=== PATIENT | male | born 1945 | race Caucasian/White ===

== ENCOUNTER 2021-04-19 08:47 | Day surgery (SDC) | payer MEDICARE, OTHER ==
[~2021-04-19] VITALS: Ht 172.7 cm; Wt 82.2 kg
[~2021-04-19 08:47] MED LIST: AMLO5 PO; ASPI81EC PO; BUDE6HFA INH; METF500 PO; PRAV20 PO; TADA10TA PO; TELM80/12.5 PO
[2021-04-19] MEDS ORDERED: METO25ER PO (10:01)
[2021-04-19] MEDS ORDERED: PRED5 PO (10:02)
[2021-04-19] MEDS ORDERED: JARDIANCE10 MG PO (10:02)
[2021-04-19] MEDS ORDERED: SITA50T2 PO (10:03)
[2021-04-19] MEDS ORDERED: LOSA50 PO (10:03)
--- NOTE | 2021-04-19 10:08 | NUR ---
04/19/21 [id number] Sheila Millard CALL LIGHT WITHIN REACH
--- NOTE | 2021-04-19 11:22 | NUR ---
04/19/21 1122 Edy Jaeger 1MG OF EPI ADDED TO EACH OF THE FIRST THREE BAGS OF LR USED FOR JOINT IRRIGATION.
--- NOTE | 2021-04-19 13:11 | NUR ---
04/19/21 1311 LAVONNE COCHRAN SECOND BAG OF LR RUNNING IN PACU- REMAINING AT DC 650ML
== END 2021-04-19 13:43 | disposition home or self-care (01) ==
LOC: ORSCSDS 08:47
PROVIDERS: Orthopaedic Surgery
PROC: 0RNJ4ZZ Release Right Shoulder Joint, Percutaneous Endoscopic Approach (ICD-10-PCS; principal; 2021-04-19 10:15)
PROC: 0LM14ZZ Reattachment of Right Shoulder Tendon, Percutaneous Endoscopic Approach (ICD-10-PCS; principal; 2021-04-19 10:15)
PROC: 0LS34ZZ Reposition Right Upper Arm Tendon, Percutaneous Endoscopic Approach (ICD-10-PCS; principal; 2021-04-19 10:15)
DX: M75.121 Complete rotator cuff tear or rupture of right shoulder, not specified as traumatic (principal); M75.42 Impingement syndrome of left shoulder; M19.012 Primary osteoarthritis, left shoulder; M75.21 Bicipital tendinitis, right shoulder; I10 Essential (primary) hypertension; J44.9 Chronic obstructive pulmonary disease, unspecified; E11.9 Type 2 diabetes mellitus without complications; Z87.891 Personal history of nicotine dependence; Z79.84 Long term (current) use of oral hypoglycemic drugs; Z79.899 Other long term (current) drug therapy
CPT/HCPCS: 82947; C1713; J0171; J0690; J1100; J1720; J1885; J2250; J2405; J2704; J3010; J7120

== ENCOUNTER 2023-03-11 19:58 | Emergency (ER) | payer MEDICARE, OTHER ==
[~2023-03-11] VITALS: Ht 172.7 cm; Wt 83.9 kg
[~2023-03-11 19:58] MED LIST changes: +JARDIANCE10 MG PO; +LOSA50 PO; +METO25ER PO; +PRED5 PO; +SITA50T2 PO
[2023-03-11 20:16] LABS: BASOPHILS ABSOLUTE AUTO 0.07 K/mm3 (0.00-0.23); BASOPHILS PERCENT AUTO 1 % (0-2); EOSINOPHILS ABSOLUTE AUTO 0.36 K/mm3 (0.00-0.68); EOSINOPHILS PERCENT AUTO 5 % (0-6); Hematocrit 34.1 % (37.0-53.0); Hemoglobin 11.7 g/dL (13.5-17.5); IMMATURE GRAN ABSOLUTE AUTO 0.07 K/mm3 (0.00-0.10); IMMATURE GRAN PERCENT AUTO 1 % (0-1); LYMPHOCYTES ABSOLUTE AUTO 2.24 K/mm3 (0.84-5.20); LYMPHOCYTES PERCENT AUTO 29 % (21-46); MONOCYTES ABSOLUTE AUTO 0.81 K/mm3 (0.16-1.47); MONOCYTES PERCENT AUTO 11 % (4-13); Mean Corpuscular HGB 35.7 pg (26.0-34.0); Mean Corpuscular HGB Conc 34.3 g/dL (31.5-36.5); Mean Corpuscular Volume 104 fL (80-100); NEUTROPHILS ABSOLUTE AUTO 4.07 K/mm3 (1.96-9.15); NEUTROPHILS PERCENT AUTO 54 % (41-73); NRBC ABSOLUTE 0.06 K/mm3 (0.00-0.02); NRBC Auto 0.8 /100 WBC (0.0-0.2); Platelet Count 236 K/mm3 (150-400); RDW Coefficient Variation 15.6 % (11.7-14.2); RDW Standard Deviation 57.1 fL (35.1-46.3); Red Blood Cell Count 3.28 M/mm3 (4.30-5.90); White Blood Cell Count 7.62 K/mm3 (4.00-11.30)
[2023-03-11 20:30] LABS: International Normalized Ratio 0.98; Prothrombin Time Results 10.3 Sec (9.7-11.5)
[2023-03-11 20:37] LABS: Alanine Aminotransfer (ALT/SGP 39 U/L (12-78); Albumin, Blood 3.9 g/dL (3.4-5.0); Albumin/Globulin Ratio 1.1 (0.8-1.8); Alk Phos 68 U/L (50-136); Anion Gap 7 mmol/L (6-16); Aspartate Aminotrans (AST/SGOT 31 U/L (12-37); Bilirubin, Total 0.4 mg/dL (0.1-1.0); Blood Urea Nitrogen 20 mg/dL (8-24); Bun/Creatinine Ratio 21.5 (12.0-20.0); CO2, Blood 26 mmol/L (21-32); Calcium, Blood 9.2 mg/dL (8.5-10.1); Chloride, Blood 106 mmol/L (98-108); Creatinine, Blood 0.93 mg/dL (0.60-1.20); Globulin, Blood 3.7 g/dL (2.2-4.0); Glomerular Filtration Rate 85 (60-); Glucose, Blood 183 mg/dL (70-99); Potassium, Blood 4.2 mmol/L (3.5-5.5); Sodium, Blood 139 mmol/L (136-145); Total Protein, Blood 7.6 g/dL (6.4-8.2)
[2023-03-11 23:49] VITALS: BP 135/76
== END 2023-03-12 00:08 | disposition home or self-care (01) ==
LOC: ER 19:58
PROVIDERS: Emergency Medicine
DX: R55 Syncope and collapse (principal); I10 Essential (primary) hypertension; E11.9 Type 2 diabetes mellitus without complications; J44.9 Chronic obstructive pulmonary disease, unspecified; E78.5 Hyperlipidemia, unspecified; Z79.84 Long term (current) use of oral hypoglycemic drugs; Z79.899 Other long term (current) drug therapy; Z79.52 Long term (current) use of systemic steroids; Z79.51 Long term (current) use of inhaled steroids
CPT/HCPCS: 71045; 80053; 84484; 85025; 85610; 93005; 93010; 99285-25

== ENCOUNTER 2023-05-22 09:25 | Day surgery (SDC) | payer OTHER ==
[~2023-05-22] VITALS: Ht 170.2 cm; Wt 82.5 kg
[2023-05-22] VITALS (14 sets, daily range): BP systolic 111–184; BP diastolic 60–89
[~2023-05-22 09:25] MED LIST changes: +FARXIGA5 MG PO
--- NOTE | 2023-05-22 11:01 | NUR ---
History, Chart, Medications and Allergies reviewed before start of procedure. Patient up to Ambulate independently. Gait steady. Pre-Op teaching done. Pt verbalizes understanding. Patient confirms NPO status and agrees with scheduled surgery. Patient states colon prep results clear. Patient States Post-Procedure ride home has been arranged.
--- NOTE | 2023-05-22 11:54 | NUR ---
05/22/23 1154 Elza Valencia HISTORY, CHART, MEDICATIONS AND ALLERGIES REVIEWED BEFORE START OF PROCEDURE. PATIENT CONFIRMS NPO STATUS AND AGREES WITH SCHEDULED PROCEDURE. 3-LEAD EKG REVIEWED WITH PHYSICIAN PRIOR TO START OF PROCEDURE. MONITOR INTACT WITH CONTINUOUS PULSE OXIMETRY,CAPNOGRAPHY, 3-LEAD EKG, INTERMITTENT BP. SUPPLEMENTAL O2 TO BE TITRATED THROUGHOUT PROCEDURE TO MAINTAIN O2 SATURATION ABOVE 90%. PATIENT DETERMINED TO BE ASA APPROPRIATE FOR PROPOFOL SEDATION PRIOR TO START OF PROCEDURE BY DR. BRAMBILA. MALLAMPATI CLASS 2 AIRWAY: COMPLETE VISUALIZATION OF THE UVULA.
--- NOTE | 2023-05-22 12:12 | NUR ---
PT TO DAY SURGERY STEP DOWN FROM COLONOSCOPY. PT IS AWAKE, ALERT AND ORIENTED; ABLE TO MOVE SELF IN BED. VSS. PT HAS NO COMPLAINTS. Patient States Post-Procedure ride home has been arranged.
--- NOTE | 2023-05-22 12:30 | NUR ---
Discharge instructions reviewed with patient. Patient verbalizes understanding. Copy given to patient to take home.
--- NOTE | 2023-05-22 12:43 | NUR ---
Patient up to Ambulate independently. Gait steady. Discharged via wheelchair to private car for ride home.
== END 2023-05-22 12:44 | disposition home or self-care (01) ==
LOC: ORSCMMR 09:25 → ORD 10:30 → ORSCMMR 12:44
PROVIDERS: Internal Medicine Gastroenterology
PROC: 0DJD8ZZ Inspection of Lower Intestinal Tract, Via Natural or Artificial Opening Endoscopic (ICD-10-PCS; principal; 2023-05-22 10:30)
DX: Z12.11 Encounter for screening for malignant neoplasm of colon (principal); K57.30 Diverticulosis of large intestine without perforation or abscess without bleeding; M35.3 Polymyalgia rheumatica; I10 Essential (primary) hypertension; E78.00 Pure hypercholesterolemia, unspecified; Z85.51 Personal history of malignant neoplasm of bladder; Z79.84 Long term (current) use of oral hypoglycemic drugs; Z79.899 Other long term (current) drug therapy
CPT/HCPCS: 82947; J2704; J7120

== ENCOUNTER 2025-02-16 06:15 | Day surgery (SDC) | payer OTHER ==
[~2025-02-16] VITALS: Ht 172.7 cm; Wt 77.4 kg
[~2025-02-16 06:15] MED LIST changes: +Lidocaine 1%-Epineph 1:100000 20 ML MDV ONE; +Sodium Bicarb 8.4% 1 MEQ/ML 50 ML Vial ONE
[2025-02-16] MEDS ORDERED: NS 500 ML IV ONE ×2 (06:26→06:48)
[2025-02-16] MEDS ORDERED: CeFAZolin Sodium 2,000 MG VIAL ONE (06:39)
[2025-02-16] MEDS ORDERED: Aspir 8181 MG PO (06:43)
--- NOTE | 2025-02-16 07:04 | NUR ---
02/16/25 0704 Shari Person TIME OUT PERFORMED AT BEDSIDE WITH DR LYON IMMEDIATELY PRIOR TO ADMINISTRATION OF 8ML OF 10ML SOLUTION CONSISTING OF 9ML 1% LIDOCAINE W/EPI [id number] AND 1ML 8.4% SODIUM BICARBONATE AT 0659. PT TOLERATED PROCEDURE WELL. CALL LIGHT IN REACH. EDUCATION REGARDING TODAY'S SURGERY AND POST OP INSTRUCTIONS PROVIDED. PT VERBALIZES NO FURTHER QUESTIONS OR NEEDS AT THIS TIME.
[2025-02-16 07:44] VITALS: BP 135/67
--- NOTE | 2025-02-16 07:49 | NUR ---
02/16/25 0749 Lainey Ortiz PT DENIES PAIN, NO NAUSEA. PT ABLE TO TOLERATE FLUIDS WELL. PT PLEASANT AND COOPERATIVE WITH CARE PROVIDED. PT'S IS AT BEDSIDE. PT EDUCATION PROVIDED, ALL QUESTIONS ANSWERED AND CONCERNS ADDRESSED. PT TOLERATED THE D/C OF IV.
== END 2025-02-16 07:57 | disposition home or self-care (01) ==
LOC: ORSCSDS 06:15
PROVIDERS: Orthopaedic Surgery
PROC: 01N54ZZ Release Median Nerve, Percutaneous Endoscopic Approach (ICD-10-PCS; principal; 2025-02-16 07:30)
DX: G56.01 Carpal tunnel syndrome, right upper limb (principal); E11.9 Type 2 diabetes mellitus without complications; I10 Essential (primary) hypertension; J44.9 Chronic obstructive pulmonary disease, unspecified; Z87.891 Personal history of nicotine dependence; Z79.84 Long term (current) use of oral hypoglycemic drugs; Z79.899 Other long term (current) drug therapy
CPT/HCPCS: 82947; J0690; J2704; J7040